=== PATIENT | male | born 1970 | race African-American/Black ===

== ENCOUNTER 2020-10-06 08:46 | Outpatient (REF) | payer BC, SELFPAY ==
[2020-10-06 09:09] LABS: COVID-19 Test Negative (Negative)
== END 2020-10-06 08:47 | disposition home or self-care (01) ==
LOC: HO.LAB 08:46
PROVIDERS: PCP Internal Medicine; Visit Provider Internal Medicine
DX: Z20.828 Contact with and (suspected) exposure to other viral communicable diseases (principal)
CPT/HCPCS: 36415; 87635; C9803

== ENCOUNTER 2020-10-10 14:26 | Outpatient (REF) | payer BC, SELFPAY ==
[2020-10-10 14:36] LABS: COVID-19 Test Positive (Negative)
== END 2020-10-10 14:27 | disposition home or self-care (01) ==
LOC: HO.LAB 14:26
PROVIDERS: Visit Provider Internal Medicine
DX: Z20.822 Contact with and (suspected) exposure to COVID-19 (principal)
CPT/HCPCS: 36415; 87635; C9803

== ENCOUNTER 2021-06-23 18:47 | Emergency (ER) | payer OTHER, BC, SELFPAY ==
[2021-06-23 18:54] VITALS: BP 153/90; PULSE 100; RESP 16; TEMP 36.7; O2SAT 99; BMI 28.1
[2021-06-23 19:50] LABS: Basophils Absolute Auto 0.1 X10*3/uL (0.0-0.2); Basophils Percent Auto 0.9 % (0-2); Eosinophils Absolute Auto 0.1 X10*3/uL (0.0-0.4); Eosinophils Percent Auto 0.9 % (0-4); Hematocrit 41.2 % (42-52); Imm Gran Abs Auto 0.01 X10*3/uL (0.00-0.03); Imm Gran Pct Auto 0.2 % (0.0-0.4); Lymphocytes Absolute Auto 1.3 X10*3/uL (1.2-4.9); Lymphocytes Percent Auto 23.9 % (20-40); MANUAL DIFF FLAG NO; Mean Corpuscular Hemoglobin 29.5 pg (27.0-33.0); Mean Corpuscular Volume 86.7 fL (80-98); Mean Platelet Volume 9.9 fL (9.4-12.4); Monocytes Absolute Auto 0.4 X10*3/uL (0.1-1.2); Monocytes Percent Auto 6.5 % (2-11); Neutrophils Absolute Auto 3.6 X10*3/uL (2.0-8.3); Neutrophils Percent Auto 67.6 % (45-73); Platelet Count 282 X10*3/uL (160-400); Red Blood Count 4.75 X10*6/uL (4.60-5.80); Red Cell Distribution Width 14.6 % (11.0-16.0); White Blood Count 5.4 X10*3/uL (4.8-10.8)
[2021-06-23 20:13] LABS: Alanine Aminotransferase 23 U/L (0-40); Albumin Level 4.6 g/dL (3.5-5.0); Alkaline Phosphatase 70 U/L (39-117); Anion Gap 13 (12-20); Aspartate Amino Transferase 17 U/L (5-37); Bilirubin Direct 0.2 mg/dL (0.0-0.5); Bilirubin Total 0.3 mg/dL (0.0-1.0); Blood Urea Nitrogen 11 mg/dL (9-16); Calcium 9.6 mg/dL (8.4-10.2); Carbon Dioxide 28 mmol/L (22-29); Chloride 102 mmol/L (96-108); Creatinine Clr Calc Pharmacy 95.1; Estimated Glomerular Filt Rate > 60; Glucose Random 139 mg/dL (60-115); Potassium 3.4 mmol/L (3.3-5.1); Sodium 140 mmol/L (135-145); Total Protein 8.2 g/dL (6.5-8.0)
--- NOTE | 2021-06-23 20:20 | ED.GENADULT ---
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 Patient was handling a bag of needles used by a hair when users, and as he was disposing of the bag 1 of the needles stuck him in the finger. Related Data Previous Rx's Medication Instructions Recorded emtricitabine 200 mg-tenofovir 1 tab PO DAILY 7 Days #7 tab 06/23/21 disoproxil fumarate 300 mg tablet (Truvada) raltegravir 400 mg tablet 400 mg PO BID 7 Days #14 tab 06/23/21 Allergies Allergy/AdvReac Type Severity Reaction Status Date / Time No Known Allergies Allergy Verified 06/23/21 19:00 Review of Systems Review of Systems: Constitutional : No Weight loss, No Fever, No Chills, No Night Sweats,No Fatigue, No Malaise ENT/Mouth : No Hearing loss, No Ear Pain, No Nasal Congestion, NoSinus Pain, No Hoarseness, No sore throat, No Rhinorrhea, NoSwallowing Difficulty Eyes: No Eye Pain, No Swelling, No Redness, No Foreign Body, NoDischarge, No Vision Changes Cardiovascular : No Chest Pain, No SOB, No Dyspnea on Exertion, NoOrthopnea, No Edema, No Palpitations Respiratory : No Cough, No Sputum, No Wheezing, No Smoke Exposure, No Dyspnea Gastrointestinal : No Nausea, No Vomiting, No Diarrhea, NoConstipation, No abdominal Pain, No Hematochezia, No Melena Genitourinary : no irregular bleeding, No Dysuria, No UrinaryFrequency, No Hematuria, No Urinary Incontinence, No Urgency, No FlankPain, No Urinary Flow Changes, No Hesitancy Musculoskeletal : No joint pain, No Myalgias, No Joint Swelling Skin : No Skin Lesions, No rash Neuro : No Weakness, No Numbness, No Paresthesias, No Loss ofConsciousness, No Dizziness, No Headache Psych : mild anxiety, tremors in hands, , No Depression, No SI/HI/AH/VH, No Social Issues, Endocrine : No Polyuria, No Polydipsia, No Temperature Intolerance [facility] Past Medical History Medical History (Updated 06/23/21 @ 20:28 by KYRA Miller) Hypertension Social History Social History Advance Directives: No Advance Directives Information Provided: No Physical Exam Vital Signs: Vital Signs: Last Vital Signs Temp 98.1 F 06/23/21 18:54 Pulse 100 06/23/21 18:54 Resp 16 06/23/21 18:54 BP 153/90 H 06/23/21 18:54 Pulse Ox 99 06/23/21 18:54 Body Mass Index 28.1 Const: General: cooperative, no acute distress, well developed, alert and awake Nutritional Appearance: well nourished Orientation/consciousness: patient oriented x3 Limitations: no limitations HENMT: Head: Yes normal to inspection, Yes normocephalic and Yes atraumatic Ears: hearing grossly normal bilaterally, external ears normal, TM's normal bilaterally and EAC's normal General nose exam: Normal external nose present Face and sinus: Yes normal facial exam and Yes sinuses nontender Mouth: Normal oral and palatal mucosa present Throat: Yes posterior oropharynx normal Eyes: Conjunctivae: conjunctivae normal Pupils: Equal, round and reactive pupils present EOM: EOMs intact bilaterally Neck: Neck: Yes full ROM, Yes no lymphadenopathy and Yes supple Resp: Effort & Inspection: normal respiratory effort and able to speak in complete sentences Auscultation: clear to auscultation bilaterally, no crackles, no rales, no rhonchi and no wheezes Cardio: Rate: regular rate Rhythm: regular rhythm Heart sounds: S1 normal heart sound present and S2 normal heart sound present GI: Inspection: Yes normal to inspection Palpation (GI): Soft to palpation, nontender, no guarding and not rigid Percussion: Yes normal to percussion Auscultation: normal bowel sounds Skin: General skin exam: no rashes or lesions noted Neuro: General: patient oriented x3, tone normal and moves all extremities Cranial nerves: Yes Equal, round and reactive pupils present Extrem: General: Yes normal to inspection and Yes full ROM Psych: Appearance: grossly normal Affect: normal affect Attitude: cooperative Thought process: Normal thought process present Course Course Course Narrative: Referred patient to [facility], [facility] labs, prescribed raltegravir and Truvada for 1 week, counseled patient he needs to see [facility] this coming week so that he can be prescribed more medicine and have follow up. I did not prescribe for the entire 28 days as it is expensive. Patient verbalized agreement and understanding of the plan. Medical Decision Making Lab Data Result diagrams: 06/23/21 19:44 06/23/21 19:44 Labs: Lab Results 06/23/21 06/23/21 Range/Units 19:44 19:44 WBC 5.4 (4.8-10.8) X10*3/uL RBC 4.75 (4.60-5.80) X10*6/uL Hgb 14.0 (14.0-18.0) g/dl Hct 41.2 L (42-52) % MCV 86.7 (80-98) fL MCH 29.5 (27.0-33.0) pg MCHC 34.0 (31.0-36.0) g/dl RDW 14.6 (11.0-16.0) % Plt Count 282 (160-400) X10*3/uL MPV 9.9 (9.4-12.4) fL Immature Gran % (Auto) 0.2 (0.0-0.4) % Neut % (Auto) 67.6 (45-73) % Lymph % (Auto) 23.9 (20-40) % [place] % (Auto) 6.5 (2-11) % Eos % (Auto) 0.9 (0-4) % Baso % (Auto) 0.9 (0-2) % Lymph # (Auto) 1.3 (1.2-4.9) X10*3/uL [place] # (Auto) 0.4 (0.1-1.2) X10*3/uL Eos # (Auto) 0.1 (0.0-0.4) X10*3/uL Baso # (Auto) 0.1 (0.0-0.2) X10*3/uL Abs Immat Gran (auto) 0.01 (0.00-0.03) X10*3/uL Absolute Neuts (auto) 3.6 (2.0-8.3) X10*3/uL Absolute Nucleated RBC 0.000 (0.0-0.012) X10*3/uL Nucleated RBC % (auto) 0.0 (0.0-0.2) /100WBC Sodium 140 (135-145) mmol/L Potassium 3.4 (3.3-5.1) mmol/L Chloride 102 (96-108) mmol/L Carbon Dioxide 28 (22-29) mmol/L Anion Gap 13 (12-20) BUN 11 (9-16) mg/dL Creatinine 0.98 (0.5-1.4) mg/dL Estim Creat Clear Calc 95.1 Estimated GFR > 60 Random Glucose 139 H (60-115) mg/dL Calcium 9.6 (8.4-10.2) mg/dL Total Bilirubin 0.3 (0.0-1.0) mg/dL Direct Bilirubin 0.2 (0.0-0.5) mg/dL AST 17 (5-37) U/L ALT 23 (0-40) U/L Alkaline Phosphatase 70 (39-117) U/L Total Protein 8.2 H (6.5-8.0) g/dL Albumin 4.6 (3.5-5.0) g/dL Discharge Plan Discharge Clinical Impression: Needlestick injury accident with exposure to body fluid Patient Disposition: Home, Self-Care Additional Instructions: Call [facility] on Saturday for follow-up appointment this week. I have only prescribed enough medicine to get you through Saturday, you must see them before Saturday because you need medicine for 4 weeks but due to cost I will only prescribed 1 week today. One prescription you take once a day, the other you take twice a day. [facility] [phone] They will have a schedule for your blood to be drawn over the next 6 months to test you for HIV They will also check your hepatitis-B level to make sure that your titers are appropriate and you are protected from hepatitis-B. They have access to all the labs we juanita today . 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
[2021-06-26 08:45] LABS: HBc Num1 0.08 S/CO (0.00-0.79); HBsAGNum1 0.26 S/CO (0.00-0.99); Hepatitis B Core Antibody Nonreactive (Nonreactive); Hepatitis B Surface Antigen Negative (Negative); ~HepC Num1 0.07 S/CO (0.00-0.79); ~Hepatitis C Antibody Nonreactive (Nonreactive)
[2021-06-26 08:57] LABS: HBS Num1 3.87 mIU/mL (0-7.99); HIV AB/AG Nonreactive (Nonreactive); HIV Num 1 0.07 S/CO (0.00-0.99); ~Hepatitis B Surface Antibody NONREACTIVE (Nonreactive)
== END 2021-06-23 20:55 | disposition home or self-care (01) ==
PROVIDERS: Physician Assistant; Emergency Provider Emergency Medicine
DX: S61.231A Puncture wound without foreign body of left index finger without damage to nail, initial encounter (principal); M79.642 Pain in left hand; W26.9XXA Contact with unspecified sharp object(s), initial encounter; Y93.9 Activity, unspecified; Y92.239 Unspecified place in hospital as the place of occurrence of the external cause; Y99.0 Civilian activity done for income or pay; Z20.9 Contact with and (suspected) exposure to unspecified communicable disease; Z79.899 Other long term (current) drug therapy
CPT/HCPCS: 36415; 80048; 80076; 85025; 86704; 86706; 86803; 87340; 87389; 99283

== ENCOUNTER → 2021-06-27 11:01 | Outpatient (BNVA) | payer OTHER, SELFPAY | PROVIDERS: Visit Provider Physician Assistant Medical | DX: Z23 Encounter for immunization (principal) | CPT/HCPCS: 90746; 99203 ==

== ENCOUNTER → 2021-07-07 09:40 | Outpatient (BNVA) | payer OTHER, SELFPAY | PROVIDERS: Visit Provider Physician Assistant | DX: Z77.21 Contact with and (suspected) exposure to potentially hazardous body fluids (principal) | CPT/HCPCS: 36415; 80076; 82150; 82565; 85025; 99213 ==

== ENCOUNTER → 2021-07-21 09:25 | Outpatient (BNVA) | payer OTHER, SELFPAY | DX: Z77.21 Contact with and (suspected) exposure to potentially hazardous body fluids (principal) | CPT/HCPCS: 36415; 82150; 82565; 84450; 84460; 85025; 99211 ==

== ENCOUNTER → 2021-08-08 09:25 | Outpatient (BNVA) | payer OTHER, SELFPAY | DX: Z77.21 Contact with and (suspected) exposure to potentially hazardous body fluids (principal) | CPT/HCPCS: 36415; 84450; 84460; 85027; 86706; 87389; 99211 ==

== ENCOUNTER → 2021-09-26 10:39 | Outpatient (BNVA) | payer OTHER, SELFPAY | DX: Z77.21 Contact with and (suspected) exposure to potentially hazardous body fluids (principal) | CPT/HCPCS: 36415; 84450; 84460; 86803; 87389; 99211 ==

== ENCOUNTER 2021-09-30 11:01 | Outpatient (REF) | payer BC, SELFPAY ==
[2021-09-30 11:36] LABS: Binax Internal Control QC Valid; Binax Lot number: 9864; Binax Now Covid-19 Ag Negative (Negative)
== END 2021-09-30 11:02 | disposition home or self-care (01) ==
LOC: HO.LAB 11:01
PROVIDERS: Visit Provider Internal Medicine
DX: Z20.822 Contact with and (suspected) exposure to COVID-19 (principal)
CPT/HCPCS: 36415; C9803

== ENCOUNTER → 2021-12-22 13:02 | Outpatient (BNVA) | payer OTHER, SELFPAY | DX: Z77.21 Contact with and (suspected) exposure to potentially hazardous body fluids (principal) | CPT/HCPCS: 36415; 84450; 84460; 86803; 87389; 99211 ==

== ENCOUNTER 2024-04-18 05:58 | Emergency (ER) | payer OTHER, BC, SELFPAY ==
--- NOTE | ~2024-04-18 | XR_ITS ---
EXAMINATION: XR LUMBOSACRAL SPINE CLINICAL INFORMATION: Severe back pain. COMPARISON: None available. TECHNIQUE: Three views of the lumbosacral spine. FINDINGS: No evidence of acute compression deformity or traumatic subluxation. Moderate intervertebral disc height loss and facet arthropathy at L4-L5 and more prominent at L5-S1 leading to some degree of neural foraminal osseous encroachment. Symmetric SI joints. A few pelvic calcifications are most likely phleboliths. No significant paraspinal soft tissue abnormality. XR/XR lumbar spine 2-3V IMPRESSION: 1. No acute compression deformity or malalignment. 2. Moderate lumbar spondylosis at L4-L5 and L5-S1.
[2024-04-18 06:04] VITALS: BP 118/68; BP 119/72; PULSE 72; PULSE 80; RESP 16; TEMP 36.2; O2SAT 98; O2SAT 99; BMI 29.9
--- OUTSIDE RECORDS SUMMARY | 2024-04-18 06:25 | XMS_ITS ---
Author Organization [facility] Address [address] [place] [address] Care Team Providers Care Tearer Press Clipping Name Role Phone ALEENA ANNAMARIEJOHANNA Unavailable [phone] REASON FOR VISIT pt here for nv.. pt signed consent form and tolerated micc injection well Encounters Encounter Location Date Provider Diagnosis [address] [id number] 11/13/2022 [place] [facility] OF TREATMENT No Information MEDICATIONS ADMINISTERED Medication Instructions Date of Administration Dosage Notes MICC B12 INJECTION 11/13/2022 lot # [id number] Progress Notes * Maciej SOLISDOB:1970 ([age] yo M)Acc No.[id number]:11/13/2022 Progress Note Patient:??Maciej SOLIS Provider:??[facility] FLOOD MD :1970?Age:52 Y?Sex:Devin santos Date:11/13/2022 Address: [id number] Subjective: * Chief Complaints: * ?1. Pt here for nv.. pt signed consent form and tolerated micc injection well. * Medical History:?? Objective: Assessment: Plan: * Treatment: * Therapeutic Injections:? MICC B12 INJECTION (Route: Intramuscular) given by saritha elam on right deltoid Care Plan: * Problems:?? * Images: Billing Information: * Visit Code:?? * Procedure Codes:?? Care Plan Details* * Sign off status: Pending * Provider:??OK FLOOD MD Date:?? 023
--- OUTSIDE RECORDS SUMMARY | 2024-04-18 06:25 | XMS_ITS | Patient Health Record ---
Author Organization [facility] Address [address] [place] [id number] REASON FOR REFERRAL No Information PLAN OF TREATMENT No Information MEDICATIONS ADMINISTERED Medication Instructions Date of Administration Dosage Notes [facility] B12 INJECTION 11/13/2022 lot # [id number]
--- NOTE | 2024-04-18 07:12 | ED_ITS ---
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 He reports he had sudden onset of sharp pain in his right lower back that radiates down his right leg. He denies any weakness, numbness, tingling in the leg, just pain. He reports pain is worse with any movement. He states the pain was so severe brought him down to his knees and despite had to be called when he was at the station. He was given fentanyl and Zofran from EMS. Patient denies any urinary symptoms, trouble moving his bowels or bladder incontinence. No numbness or tingling in the inguinal region. He states he has had intermittent episodes of back pain but nothing to this severity. MD elicited complaint: back pain Onset (ago): hour(s) Timing: constant Severity: severe Pain scale (0-10): 9 Similar Symptoms Previously: No Quality: sharp and stabbing Location: right lower back Radiation: right leg below the knee Exacerbating factors: movement Relieving factors: immobilization Context: turning/twisting and bending Associated symptoms: denies other symptoms Treatments prior to arrival: prescription analgesics Work related injury: Yes Related Data Previous Rx's ?Medication ?Instructions ?Recorded emtricitabine 200 mg-tenofovir 1 tab PO DAILY 7 days #7 tabs 06/23/21 disoproxil fumarate 300 mg tablet (Truvada) raltegravir 400 mg tablet 400 mg PO BID 7 days #14 tabs 06/23/21 cyclobenzaprine 10 mg tablet 10 mg PO TID PRN muscle spasm #14 04/18/24 tabs ibuprofen 800 mg tablet 800 mg PO Q8H PRN pain #14 tabs 04/18/24 lidocaine HCl 2.75 % lotion 1 appl topical BID #15 grams 04/18/24 (Anastia) oxycodone 5 mg tablet 5 mg PO Q8H PRN severe pain (scale 07/20/24 score 7-10) #8 tabs Allergies Allergy/AdvReac Type Severity Reaction Status Date / Time No Known Allergies Allergy Verified 04/18/24 06:07 Review of Systems Review of Systems: Yes all other systems are reviewed and are negative [facility] Past Medical History Medical History (Updated 04/18/24 @ 10:29 by KYRA Allison) Hypertension Social History Social History Advance Directives: No Advance Directives Information Provided: Yes Physical Exam Vital Signs: Vital Signs: Last Vital Signs Temp 97.2 F 04/18/24 06:04 Pulse 72 04/18/24 06:04 Resp 16 04/18/24 09:04 BP 119/72 04/18/24 06:04 Pulse Ox 99 04/18/24 06:04 O2 Del Method Room Air 04/18/24 06:04 BMI result Body Mass Index 29.9 Appearance: Alert. Oriented X3. Appears uncomfortable and in pain HEENT: Normal to inspection Neck: Normal inspection. CVS: Normal heart rate and rhythm. Pulses normal. Respiratory: No respiratory distress. Breath sounds normal. Abdomen: Soft and nontender. +BS x4 Back: Normal to inspection, soft tissue tenderness of the middle and lower lumbar area. Positive SI joint tenderness. Limited range of motion due to severe pain. Palpable muscle spasm in the right lumbar area. Skin: Skin warm and dry. Normal skin color. Normal skin turgor. No rashes. Extremities: No lower extremity edema. No joint swelling. Normal dorsiflexion and plantar flexion, no weakness in the right lower extremity Neuro/psych: Oriented X 3. No motor deficit. No sensory deficit. CN II-XII intact. Normal speech and cognition. Medications Administered Discontinued Medications Generic Name Dose Route Start Last Admin Trade Name Freq PRN Reason Stop Dose Admin Cyclobenzaprine HCl 10 mg 04/18/24 06:47 04/18/24 07:24 Cyclobenzaprine Hcl 10 Mg Tablet PO 04/18/24 06:48 10 mg ONCE ONE Administration Hydromorphone HCl 1 mg 04/18/24 08:29 04/18/24 09:04 Hydromorphone Hcl 1 Mg/Ml Syringe IM 04/18/24 08:30 1 mg ONCE ONE Administration Protocol Ketorolac Tromethamine 30 mg 04/18/24 06:47 04/18/24 07:25 Ketorolac Tromethamine 30 Mg/Ml Vial IM 04/18/24 06:48 30 mg ONCE ONE Administration Medical Decision Making Medical Decision Making [facility] Narrative: 54-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 Patient reports sharp pain that radiates down the back of the leg. No numbness, weakness, tingling. The pain does radiate into the groin and down the leg to the foot. He has no red flag symptoms of low back pain. On arrival to the ER patient is very uncomfortable and in a lot of pain. He was given IM Toradol and Flexeril with minimal relief. Intramuscular Dilaudid was then given with some improvement. X-ray results reviewed, showed some mild degenerative changes of the discs. No fractures or malalignment. At this time comfortable discharge home with pain control and outpatient follow- up. He will need to be cleared to return to work by [facility] or his primary care physician given the nature of his job. Stable to be discharged home with his who will help care for him at home. Differential Diagnosis Differential Diagnoses: The differential diagnosis associated with the presentation includes Inflammatory disorders, malignancy, trauma, osteoporosis, nerve root compression, radiculopathy, plexopathy, degenerative disc disease, disc herniation, spinal stenosis, sacroiliac joint dysfunction, facet joint injury, and less likely infection?like abscess or diskitis Admission/Observation Consideration of admission/observation: Escalation of care including admission/observation considered Considered observation for pain control Independent Interpretation I performed an independent interpretation of an: Plain X-Ray Interpretation: No acute fractures or malalignment appreciated Radiology Impression Discussion of test interpretation with radiology: I have reviewed the radiologist's reading. Radiologist Impression: EXAMINATION: XR LUMBOSACRAL SPINE CLINICAL INFORMATION: Severe back pain. COMPARISON: None available. TECHNIQUE: Three views of the lumbosacral spine. FINDINGS: No evidence of acute compression deformity or traumatic subluxation. Moderate intervertebral disc height loss and facet arthropathy at L4-L5 and more prominent at L5-S1 leading to some degree of neural foraminal osseous encroachment. Symmetric SI joints. A few pelvic calcifications are most likely phleboliths. No significant paraspinal soft tissue abnormality. XR/XR lumbar spine 2-3V IMPRESSION: 1. No acute compression deformity or malalignment. 2. Moderate lumbar spondylosis at L4-L5 and L5-S1. Independent Historian Clinical information obtained from an independent historian. History obtained from or confirmed by: Spouse and EMS Tests considered The following testing was considered but not selected: CT scan of the lumbar spine was considered however low clinical suspicion for central spinal stenosis Prescription Management I considered prescription management with: Pain Medication Critical Care Time Critical Care Time Critical Care Time: Yes Total Critical Care Time: 32 Attestation: I have personally provided critical care time exclusive of time spent on separately billable procedures. Time includes review of radiology results considered evaluation after intramuscular narcotics, reassessment of cardiopulmonary status and pain and monitoring for potential decompensation. Intervention performed as documented. Discharge Plan Discharge Clinical Impression: Lumbar radiculopathy Strain of lumbar region Qualifiers: Encounter type: initial encounter Qualified Code(s): S39.012A - Strain of muscle, fascia and tendon of lower back, initial encounter Patient Disposition: Home, Self-Care Instructions: Low Back Strain (ED), Acute Low Back Pain (ED), Lower Back Exercises (ED) Additional Instructions: Your pain is most likely due to muscle strain and spasm. Along with nerve compression causing pain down the leg No bending, lifting or twisting. Rest. No strenuous activity Use ice several times per day for 20 minutes at a time for the next 48 hours and then change to heat. Take medications as prescribed to help with pain and discomfort. Follow up with your Primary Care Doctor this week and [facility] If your pain worsens, if you develop new numbness, tingling, weakness, loss of function or incontinence call 911 or come back to the ER right away for evaluation. Prescriptions: New cyclobenzaprine 10 mg tablet 10 mg PO TID PRN (Reason: muscle spasm) Qty: 14 0RF ibuprofen 800 mg tablet 800 mg PO Q8H PRN (Reason: pain) Qty: 14 0RF Anastia 2.75 % lotion 1 appl topical BID Qty: 15 0RF oxycodone 5 mg tablet 5 mg PO Q8H PRN (Reason: severe pain (scale score 7-10)) Qty: 8 0RF Rx Instructions: Partial Fill upon patient request. No Action emtricitabine-tenofovir (TDF) [Truvada] 200-300 mg tablet 1 tab PO DAILY 7 Days Qty: 7 0RF raltegravir 400 mg tablet 400 mg PO BID 7 Days Qty: 14 0RF Referrals: [facility] [Provider Group] Veronica Stockton MD [Primary Care Provider] - Stand Alone Forms: Work/School Release Print Language: Croatian
[2024-04-18] MEDS: Cyclobenzaprine HCl 10 MG TABLET PO (07:24)
--- NOTE | 2024-04-18 07:24 | PC.NURSE ---
patient resting on stretcher, complaining of 9/10 right hip pain, patient medicated per NOV, awaiting xray at this time, family at bedside, patient offered heat or ice pack and patient refused. awaiting scans at this time
[2024-04-18] MEDS: Ketorolac Tromethamine 30 MG/ML VIAL IM (07:25)
[2024-04-18 09:04] VITALS: RESP 16
[2024-04-18] MEDS: HYDROmorphone HCl 1 MG/ML SYRINGE IM (09:04)
[2024-04-18 10:52] VITALS: BP 125/80; PULSE 70; RESP 12; TEMP 36.9; O2SAT 97
[2024-04-18 10:57] VITALS: BP 125/80; PULSE 70; RESP 12; TEMP 36.9; O2SAT 97
== END 2024-04-18 11:02 | disposition home or self-care (01) ==
PROVIDERS: Emergency Provider Internal Medicine; PCP Internal Medicine
DX: M54.16 Radiculopathy, lumbar region (principal); S39.012A Strain of muscle, fascia and tendon of lower back, initial encounter; X50.9XXA Other and unspecified overexertion or strenuous movements or postures, initial encounter; Y93.89 Activity, other specified; Y92.810 Car as the place of occurrence of the external cause; Y99.0 Civilian activity done for income or pay
CPT/HCPCS: 72100; 96372; 99283; 99284; J1170; J1885